=== PATIENT | female | born 2000 | race Caucasian/White ===

== ENCOUNTER 2021-07-09 17:02 | Emergency (ER) | payer OTHER ==
[2021-07-09 18:19] VITALS: RESP 16; TEMP 98.4
[2021-07-09] MEDS ORDERED: SODIUM CHLORIDE 0.9% 500 ML 500 ML IV STA (18:37)
[2021-07-09 19:14] LABS: Basophils % (A) 0 %; Eosinophils # (A) 0.1 k/uL (0-0.7); Eosinophils % (A) 1 %; HCT 44.9 % (34.0-46.0); HGB 15.3 gm/dL (11.4-16.0); Lymphocytes # (A) 2.3 k/uL (1.0-4.8); Lymphocytes % (A) 32 %; MCH 31.1 pg (25.0-35.0); MCV 91.3 fL (80.0-100.0); Mean Platelet Volume 6.7; Monocytes # (A) 0.3 k/uL (0-1.0); Monocytes % (A) 5 %; Neutrophils # (A) 4.1 k/uL (1.3-7.7); Neutrophils % (A) 60 %; Platelet Count 336 k/uL (150-450); RBC 4.92 m/uL (3.80-5.40); RDW 12.4 % (11.5-15.5); WBC 6.9 k/uL (3.8-10.6)
--- NOTE | 2021-07-09 19:22 | ED ---
General Adult HPI - General Chief complaint: Abdominal Pain Stated complaint: abd pain/neck pain Time Seen by Provider: 07/09/21 18:24 Source: patient, RN notes reviewed, old records reviewed Mode of arrival: ambulatory Limitations: no limitations - History of Present Illness Initial comments: 21-year-old female presenting for evaluation of abdominal pain, mid back pain and nausea. Patient has had symptoms for approximately the past 2 weeks. She's been seen at outside hospitals for evaluation of head injury and neck pain as well as bilateral upper extremity numbness. She has not been evaluated for her abdominal pain which is predominantly right upper quadrant and this does radiate to the mid back. Patient reports some abnormalities in her bowel movements as well no significant vomiting. No measured fever. - Related Data Previous Rx's Medication Instructions Recorded Cephalexin [Keflex] 500 mg PO Q8HR 10 Days #30 cap 07/09/21 Allergies Allergy/AdvReac Type Severity Reaction Status Date / Time No Known Allergies Allergy Verified 07/09/21 18:19 Review of Systems ROS Statement: Those systems with pertinent positive or pertinent negative responses have been documented in the HPI. ROS Other: All systems not noted in ROS Statement are negative. Past Medical History Past Medical History: No Reported History History of Any Multi-Drug Resistant Organisms: None Reported Past Surgical History: No Surgical Hx Reported Past Psychological History: No Psychological Hx Reported Smoking Status: Never smoker Past Alcohol Use History: None Reported Past Drug Use History: None Reported General Exam Limitations: no limitations General appearance: alert, in no apparent distress Head exam: Present: atraumatic, normocephalic Eye exam: Present: normal appearance, PERRL ENT exam: Present: mucous membranes dry Neck exam: Present: normal inspection. Absent: tenderness, meningismus Respiratory exam: Present: normal lung sounds bilaterally. Absent: respiratory distress, wheezes Cardiovascular Exam: Present: regular rate, normal rhythm GI/Abdominal exam: Present: soft, tenderness (RU quadrant). Absent: guarding, rebound Extremities exam: Present: normal inspection, normal capillary refill. Absent: pedal edema Back exam: Present: normal inspection. Absent: CVA tenderness (R), CVA tenderness (L), paraspinal tenderness, vertebral tenderness Neurological exam: Present: alert, oriented X3, CN II-XII intact. Absent: motor sensory deficit Psychiatric exam: Present: normal affect, normal mood Skin exam: Present: warm, dry, intact. Absent: cyanosis, diaphoretic Course Vital Signs 07/09/21 18:17 Temperature 98.4 F Pulse Rate 59 L Respiratory 16 Rate Blood Pressure 114/79 O2 Sat by Pulse 99 Oximetry Medical Decision Making - Medical Decision Making 21-year-old female with right upper quadrant pain. Patient well-appearing, afebrile, stable vitals. Workup is initiated, CBC unremarkable, no leukocytosis. She has normal electrolytes, normal kidney function, no elevation in AST and ALT, normal bilirubin. Ultrasound is performed which is negative for acute cholecystitis, no acute findings. Urinalysis does show signs of persistent UTI, urine culture is pending. She is given a dose of IV antibiotics as well as IV fluid in the emergency department. We did discuss return parameters including worsening pain, fever. She will be prescribed Keflex for urinary tract infection. She will follow with her primary care physician. - Lab Data Result diagrams: 07/09/21 19:00 07/09/21 19:00 Lab Results 07/09/21 07/09/21 07/09/21 Range/Units 19:00 19:00 19:00 WBC 6.9 (3.8-10.6) k/uL RBC 4.92 (3.80-5.40) m/uL Hgb 15.3 (11.4-16.0) gm/dL Hct 44.9 (34.0-46.0) % MCV 91.3 (80.0-100.0) fL MCH 31.1 (25.0-35.0) pg MCHC 34.0 (31.0-37.0) g/dL RDW 12.4 (11.5-15.5) % Plt Count 336 (150-450) k/uL MPV 6.7 Neutrophils % 60 % Lymphocytes % 32 % Monocytes % 5 % Eosinophils % 1 % Basophils % 0 % Neutrophils # 4.1 (1.3-7.7) k/uL Lymphocytes # 2.3 (1.0-4.8) k/uL Monocytes # 0.3 (0-1.0) k/uL Eosinophils # 0.1 (0-0.7) k/uL Basophils # 0.0 (0-0.2) k/uL PT 10.5 (9.0-12.0) sec INR 1.0 (<1.2) APTT 21.5 L (22.0-30.0) sec Sodium (137-145) mmol/L Potassium (3.5-5.1) mmol/L Chloride (98-107) mmol/L Carbon Dioxide (22-30) mmol/L Anion Gap mmol/L BUN (7-17) mg/dL Creatinine (0.52-1.04) mg/dL Est GFR (CKD-EPI)AfAm (>60 ml/min/1.73 sqM) Est GFR (CKD-EPI)NonAf (>60 ml/min/1.73 sqM) Glucose (74-99) mg/dL Plasma Lactic Acid Apollo (0.7-2.0) mmol/L Calcium (8.4-10.2) mg/dL Total Bilirubin (0.2-1.3) mg/dL AST (14-36) U/L ALT (4-34) U/L Alkaline Phosphatase (38-126) U/L Total Protein (6.3-8.2) g/dL Albumin (3.5-5.0) g/dL Amylase (30-110) U/L Lipase (23-300) U/L Urine Color Yellow Urine Appearance Cloudy H (Clear) Urine pH 5.5 (5.0-8.0) Ur Specific [place] 1.030 (1.001-1.035) Urine Protein Trace H (Negative) Urine Glucose (UA) Negative (Negative) Urine Ketones 2+ H (Negative) Urine Blood Negative (Negative) Urine Nitrite Negative (Negative) Urine Bilirubin Negative (Negative) Urine Urobilinogen 2.0 (<2.0) mg/dL Ur Leukocyte Esterase Large H (Negative) Urine RBC 9 H (0-5) /hpf Urine WBC 18 H (0-5) /hpf Ur Squamous Epith Cells 10 H (0-4) /hpf Urine Bacteria Rare H (None) /hpf Urine Mucus Many H (None) /hpf Urine HCG, Qual (Not Detectd) 07/09/21 07/09/21 07/09/21 Range/Units 19:00 19:00 19:00 WBC (3.8-10.6) k/uL RBC (3.80-5.40) m/uL Hgb (11.4-16.0) gm/dL Hct (34.0-46.0) % MCV (80.0-100.0) fL MCH (25.0-35.0) pg MCHC (31.0-37.0) g/dL RDW (11.5-15.5) % Plt Count (150-450) k/uL MPV Neutrophils % % Lymphocytes % % Monocytes % % Eosinophils % % Basophils % % Neutrophils # (1.3-7.7) k/uL Lymphocytes # (1.0-4.8) k/uL Monocytes # (0-1.0) k/uL Eosinophils # (0-0.7) k/uL Basophils # (0-0.2) k/uL PT (9.0-12.0) sec INR (<1.2) APTT (22.0-30.0) sec Sodium 138 (137-145) mmol/L Potassium 4.1 (3.5-5.1) mmol/L Chloride 104 (98-107) mmol/L Carbon Dioxide 23 (22-30) mmol/L Anion Gap 11 mmol/L BUN 12 (7-17) mg/dL Creatinine 0.84 (0.52-1.04) mg/dL Est GFR (CKD-EPI)AfAm >90 (>60 ml/min/1.73 sqM) Est GFR (CKD-EPI)NonAf >90 (>60 ml/min/1.73 sqM) Glucose 82 (74-99) mg/dL Plasma Lactic Acid Apollo 0.8 (0.7-2.0) mmol/L Calcium 10.1 (8.4-10.2) mg/dL Total Bilirubin 0.7 (0.2-1.3) mg/dL AST 20 (14-36) U/L ALT 12 (4-34) U/L Alkaline Phosphatase 63 (38-126) U/L Total Protein 7.9 (6.3-8.2) g/dL Albumin 4.9 (3.5-5.0) g/dL Amylase 59 (30-110) U/L Lipase 51 (23-300) U/L Urine Color Urine Appearance (Clear) Urine pH (5.0-8.0) Ur Specific [place] (1.001-1.035) Urine Protein (Negative) Urine Glucose (UA) (Negative) Urine Ketones (Negative) Urine Blood (Negative) Urine Nitrite (Negative) Urine Bilirubin (Negative) Urine Urobilinogen (<2.0) mg/dL Ur Leukocyte Esterase (Negative) Urine RBC (0-5) /hpf Urine WBC (0-5) /hpf Ur Squamous Epith Cells (0-4) /hpf Urine Bacteria (None) /hpf Urine Mucus (None) /hpf Urine HCG, Qual Not Detected (Not Detectd) Disposition Clinical Impression: Abdominal pain, UTI (urinary tract infection) Disposition: HOME SELF-CARE Condition: Good Instructions (If sedation given, give patient instructions): Abdominal Pain (ED), Urinary Tract Infection in Women (ED) Prescriptions: Cephalexin [Keflex] 500 mg PO Q8HR 10 Days #30 cap Is patient prescribed a controlled substance at d/c from ED?: No Referrals: Matheus Mosher DO [Primary Care Provider] - 1-2 days Time of Disposition: 20:58
[2021-07-09 19:27] LABS: ALT 12 U/L (4-34); AST 20 U/L (14-36); African American GFR (CKD) >90 (>60 ml/min/1.73 sqM); Albumin 4.9 g/dL (3.5-5.0); Alkaline Phosphatase 63 U/L (38-126); Amylase 59 U/L (30-110); Anion Gap 11 mmol/L; Blood Urea Nitrogen 12 mg/dL (7-17); Calcium 10.1 mg/dL (8.4-10.2); Carbon Dioxide 23 mmol/L (22-30); Chloride 104 mmol/L (98-107); Glucose 82 mg/dL (74-99); Lipase 51 U/L (23-300); Non-African American GFR(CKD) >90 (>60 ml/min/1.73 sqM); Potassium 4.1 mmol/L (3.5-5.1); Sodium 138 mmol/L (137-145); Total Bilirubin 0.7 mg/dL (0.2-1.3); Total Protein 7.9 g/dL (6.3-8.2)
[2021-07-09 19:29] LABS: Prothrombin Time 10.5 sec (9.0-12.0)
[2021-07-09 19:34] LABS: Partial Thromboplastin Time 21.5 sec (22.0-30.0)
[2021-07-09 19:45] LABS: Appearance,Urine Cloudy (Clear); Bacteria,Urine Rare /hpf; Bilirubin,Urine Negative (Negative); Blood,Urine Negative (Negative); Color,Urine Yellow; Glucose,Urine (UA) Negative (Negative); Ketones,Urine 2+ (Negative); Leukocyte Esterase,Urine Large (Negative); Mucus,Urine Many /hpf; Nitrite,Urine Negative (Negative); PH, Urine 5.5 (5.0-8.0); Protein,Urine Trace (Negative); RBC,Urine 9 /hpf (0-5); Squamous Epithelial Cell,Urine 10 /hpf (0-4); WBC,Urine 18 /hpf (0-5)
[2021-07-09] MEDS ORDERED: cefTRIAXone IN SWFI 1,000 MG/10 ML SYRINGE IVP STA (19:53)
[2021-07-09] MEDS ORDERED: SODIUM CHLORIDE 0.9% 500 ML 500 ML IV ONE (19:53)
--- NOTE | 2021-07-09 20:34 | US ---
EXAMINATION TYPE: US gallbladder DATE OF EXAM: 07/09/2021 COMPARISON: NONE CLINICAL HISTORY: RUQ pain. EXAM MEASUREMENTS: Liver Length: 13.8 cm Gallbladder Wall: 0.1 cm CBD: 0.1 cm Right Kidney: 10.1 x 4.4 x 4.7 cm Pancreas: Obscured by bowel gas Liver: wnl Gallbladder: wnl Evidence for sonographic Galo's sign: No CBD: wnl Right Kidney: No hydronephrosis or masses seen IMPRESSION: Normal exam. No gallstones or dilated ducts.
[2021-07-09 21:41] VITALS: BP 116/79; PULSE 62
== END 2021-07-09 21:30 | disposition home or self-care (01) ==
LOC: EC 17:02
DX: R10.11 Right upper quadrant pain (principal); N39.0 Urinary tract infection, site not specified; R11.0 Nausea
CPT/HCPCS: 36415; 80053; 82150; 83605; 83690; 85025; 85610; 85730; 81001; 81025; 87086; 76705; 99284; 96374; 96361; J0696

== ENCOUNTER → 2021-07-12 | Outpatient (CLI) | payer OTHER ==
--- NOTE | 2021-07-12 17:12 | CT ---
EXAMINATION: CT brain wo con DATE AND TIME: 07/12/2021 4:56 PM CLINICAL INDICATION: PHH; DIZZINESS, DIPLOPIA TECHNIQUE: Standard departmental protocol DLP: 1017.9 mGy-cm COMPARISON: None. FINDINGS: The calvarium is intact. There is no intracranial hemorrhage. There is no intracranial mass or mass effect. No definite new intra-axial or extra-axial attenuation defect. The paranasal sinuses, middle ear cavities, and mastoid sinus air cells are clear. The orbits are unremarkable. IMPRESSION: NO ACUTE PROCESS.
--- NOTE | 2021-07-12 18:00 | CT ---
EXAMINATION TYPE: CT abdomen pelvis wo con DATE OF EXAM: 07/12/2021 COMPARISON: [birth year]/24/1969 HISTORY: Generalized abdominal and back pain. CT DLP: 246.7 mGycm Automated exposure control for dose reduction was used. TECHNIQUE: Helical acquisition of images was performed from the lung bases through the pelvis. FINDINGS: LUNG BASES: No acute findings. LIVER/GB: No significant abnormality is appreciated. PANCREAS: No significant abnormality is seen. SPLEEN: No significant abnormality is seen. ADRENALS: No significant abnormality is seen. KIDNEYS: No significant abnormality is seen. FREE AIR: No free air is visualized RETROPERITONEAL ADENOPATHY: None visualized REPRODUCTIVE ORGANS: No significant abnormality is seen URINARY BLADDER: No significant abnormality is seen. PELVIC ADENOPATHY: None visualized. OSSEOUS STRUCTURES: No significant abnormality is seen. BOWEL: No significant abnormality is seen. There is a prominent pancolonic stool pattern. IMPRESSION: NO ACUTE PROCESS. HOWEVER, PROMINENT HERNANDEZ COLONIC STOOL NOTED.
== END | disposition home or self-care (01) ==
LOC: RADCTMAIN 16:20
PROVIDERS: ATTEND Family Medicine
DX: R10.31 Right lower quadrant pain (principal); R42 Dizziness and giddiness; H53.2 Diplopia; R22.31 Localized swelling, mass and lump, right upper limb
CPT/HCPCS: 70450; 74176

== ENCOUNTER → 2021-07-31 | Outpatient (CLI) | payer OTHER ==
--- NOTE | 2021-07-31 13:40 | US ---
EXAMINATION TYPE: US gallbladder DATE OF EXAM: 07/31/2021 COMPARISON: 07/09/2021 CLINICAL HISTORY: 21-year-old female R10.9 Abdomen pain. Intermittent RUQ pain and nausea x couple mo nths TECHNIQUE: Multiple sonographic images of the right upper quadrant are obtained. FINDINGS: EXAM MEASUREMENTS: Liver Length: 13.0 cm Gallbladder Wall: 0.1 cm CBD: 0.3 cm Right Kidney: 10.6 x 4.2 x 4.7 cm Pancreas: wnl Liver: wnl Gallbladder: wnl Evidence for sonographic Galo's sign: no CBD: wnl Right Kidney: wnl IMPRESSION: Unremarkable sonographic examination of the right upper quadrant.
== END | disposition home or self-care (01) ==
LOC: RADUSWWP 09:41
PROVIDERS: ATTEND Family Medicine
DX: R10.9 Unspecified abdominal pain (principal)
CPT/HCPCS: 76705

== ENCOUNTER 2021-08-08 18:19 | Emergency (ER) | payer OTHER ==
[2021-08-08 19:03] VITALS: BP 128/82; PULSE 72; RESP 20; TEMP 98.1
--- NOTE | 2021-08-08 20:24 | ED ---
General Adult HPI - General Chief complaint: Recheck/Abnormal Lab/Rx Stated complaint: Wants covid test Time Seen by Provider: 08/08/21 20:07 Source: patient Mode of arrival: ambulatory Limitations: no limitations - History of Present Illness Initial comments: 21-year-old female presents to the emergency department for evaluation. Patient states she was in close contact with another individual who tested positive for Covid and wants to make sure that she is not infected. States she does not have any symptoms at this time. Denies fever, chills, headache, sore throat, cough, body aches, nausea, vomiting, and diarrhea. - Related Data Previous Rx's Medication Instructions Recorded Cephalexin [Keflex] 500 mg PO Q8HR 10 Days #30 cap 07/09/21 Allergies Allergy/AdvReac Type Severity Reaction Status Date / Time No Known Allergies Allergy Verified 08/08/21 19:04 Review of Systems ROS Statement: Those systems with pertinent positive or pertinent negative responses have been documented in the HPI. ROS Other: All systems not noted in ROS Statement are negative. Past Medical History Past Medical History: No Reported History History of Any Multi-Drug Resistant Organisms: None Reported Past Surgical History: No Surgical Hx Reported Past Psychological History: No Psychological Hx Reported Smoking Status: Never smoker Past Alcohol Use History: None Reported Past Drug Use History: None Reported General Exam Limitations: no limitations (Well-developed, well-nourished female in no acute distress. Initial temperature 98.1, pulse 72, respirations 20, blood pressure 120/82, pulse ox 100% on room air.) General appearance: alert, in no apparent distress ENT exam: Present: normal exam, normal oropharynx, mucous membranes moist Neck exam: Present: normal inspection. Absent: tenderness, meningismus, lymphadenopathy Respiratory exam: Present: normal lung sounds bilaterally. Absent: respiratory distress, wheezes, rales, rhonchi, stridor Cardiovascular Exam: Present: regular rate, normal rhythm, normal heart sounds. Absent: systolic murmur, diastolic murmur, rubs, gallop, clicks GI/Abdominal exam: Present: soft, normal bowel sounds. Absent: distended, tenderness, guarding, rebound, rigid Neurological exam: Present: alert, oriented X3, CN II-XII intact Psychiatric exam: Present: normal affect, normal mood Skin exam: Present: warm, dry, intact, normal color. Absent: rash Course Vital Signs 08/08/21 18:59 Temperature 98.1 F Pulse Rate 72 Respiratory 20 Rate Blood Pressure 128/82 O2 Sat by Pulse 100 Oximetry Medical Decision Making - Medical Decision Making 21-year-old female was evaluated status post COVID-19 exposure. No significant findings upon Physical exam; she is a well-appearing patient with stable vital signs. Nasal swab is negative for Covid. Patient will be discharged home with instructions to follow up with her primary care provider as needed. Return parameters were discussed in detail. Patient verbalizes understanding and agrees with this plan. This case was discussed with my attending Dr. Cruz. - Lab Data Lab Results 08/08/21 Range/Units 19:04 Coronavirus (PCR) Not Detected (Not Detectd) Disposition Clinical Impression: Exposure to COVID-19 virus Disposition: HOME SELF-CARE Condition: Stable Instructions (If sedation given, give patient instructions): Normal Exam (ED) Additional Instructions: Follow-up with her primary care provider for a recheck as needed. Return to the emergency department with any new, worsening, or concerning symptoms. Is patient prescribed a controlled substance at d/c from ED?: No Referrals: Matheus Mosher DO [Primary Care Provider] - 1-2 days Time of Disposition: 20:24
== END 2021-08-08 20:42 | disposition home or self-care (01) ==
LOC: EC 18:19
DX: Z20.822 Contact with and (suspected) exposure to COVID-19 (principal)
CPT/HCPCS: 87635; 99283